=== PATIENT | male | born 1990 | race Caucasian/White ===

== ENCOUNTER 2017-02-24 18:55 | Emergency (ER) ==
[2017-02-24 18:59] VITALS: BP 127/80; TEMP 98; BMI 30.9
--- NOTE | 2017-02-24 19:39 | ED.PDOC ---
General ED Provider: Dr. RAJEEV GOLDMAN Chief Complaint: Tooth Problem Stated Complaint: front teeth caries, and swollen gums, now rt side face is swollen. Time Seen by Physician: 19:37 Mode of Arrival: Walk-In Information Source: Patient Primary Care Provider: ARMIDA ZARATE Nursing and Triage Documentation Reviewed and Agree: Yes EENT Complaint Exam - Dental/Oral Complaint/Exam Mechanism of Injury: No known trauma Symptoms Are: Still present Timing: Constant Initial Severity: Moderate Current Severity: Moderate Character: Reports: Dull, Aching Aggravating: Reports: Cold, Chewing Alleviating: Reports: None Associated Signs and Symptoms: Reports: Swelling, Foul odor, Foul taste in mouth Related History: Reports: Similar episode Cardiac Risk Factors: Reports: None Dental/Oral Surgical History: Reports: None Tooth Findings: Present: Percussion tenderness, Gross decay, Abcess, Cellulitis Teeth Picture: 1 - caries, swollen gums Differential Diagnoses: Dental Abcess, Dental Caries Review of Systems - Review Of Systems Constitutional: Reports: No symptoms Eyes: Reports: No symptoms Ears, Nose, Mouth, Throat: Reports: No symptoms Respiratory: Reports: No symptoms Cardiac: Reports: No symptoms GI: Reports: No symptoms : Reports: No symptoms Musculoskeletal: Reports: No symptoms Skin: Reports: No symptoms Neurological: Reports: No symptoms Endocrine: Reports: No symptoms Hematologic/Lymphatic: Reports: No symptoms All Other Systems: Reviewed and Negative Past Medical History - Past Medical History Previously Healthy: Yes Endocrine: Reports: None Cardiovascular: Reports: None Respiratory: Reports: None Hematological: Reports: None Gastrointestinal: Reports: None Genitourinary: Reports: None Neuro/Psych: Reports: None Musculoskeletal: Reports: None Cancer: Reports: None - Surgical History General Surgical History: Reports: None - Family History Family History: Reports: None - Social History Smoking Status: Current every day smoker, Light tobacco smoker Smoking Cessation Counseling Time: > 3 min - 10 min Hx Substance Use: No Alcohol Screening: Occasionally Physical Exam - Physical Exam Appearance: Well-appearing, No pain distress, Well-nourished Eyes: ALONDRA, EOMI, Conjunctiva clear ENT: Ears normal, Nose normal, Oropharynx normal Respiratory: Airway patent, Breath sounds clear, Breath sounds equal, Respirations nonlabored Cardiovascular: RRR, Pulses normal, No rub, No murmur GI/: Soft, Nontender, No masses, Bowel sounds normal, No Organomegaly Musculoskeletal: Normal strength, ROM intact, No edema, No calf tenderness Skin: Warm, Dry, Normal color Neurological: Sensation intact, Motor intact, Reflexes intact, Cranial nerves intact, Alert, Oriented Psychiatric: Affect appropriate, Mood appropriate Critical Care Note - Critical Care Note Total Time (mins): 0 Course - Course Vital Signs: Temp Pulse Resp BP Pulse Ox 02/24/17 18:56 98 F 74 16 127/80 97 Departure - Departure Time of Disposition: 19:40 Disposition: HOME SELF-CARE Discharge Problem: Toothache Condition: Stable Pt referred to PMD for follow-up: Yes (dentist) Additional Instructions: If not better come back needs f/u with dentist, as per patient he has one in 3 days. Prescriptions: Clindamycin HCl 300 mg PO TID #15 capsule Hydrocodone/Acetaminophen [Newborn 5-325 Tablet] 1 tab PO TID PRN #12 tablet PRN Reason: PAIN Allergies/Adverse Reactions: Allergies cefaclor [From [facility]] Adverse Reaction (Verified 02/24/17 19:00) Penicillins Adverse Reaction (Verified 02/24/17 19:00) Home Medications: Ambulatory Orders Clindamycin HCl 300 mg PO TID #15 capsule 02/24/17 Hydrocodone/Acetaminophen [Newborn 5-325 Tablet] 1 tab PO TID PRN #12 tablet 02/24 Disposition Discussed With: Patient
[2017-02-24] MEDS ORDERED: NORCO 5-325 PO STA (19:40)
[2017-02-24] MEDS ORDERED: CLEOCIN PO STA (19:40)
== END 2017-02-24 20:06 | disposition home or self-care (01) ==
LOC: ED 18:55
DX: K04.7 Periapical abscess without sinus (principal); K02.7 Dental root caries; F17.210 Nicotine dependence, cigarettes, uncomplicated
CPT/HCPCS: 99282